=== PATIENT | male | born 1995 ===

== ENCOUNTER 2016-07-30 12:29 | Emergency (ER) | payer OTHER ==
[2016-07-30 12:30] VITALS: BMI 33.9
[2016-07-30 12:52] VITALS: TEMP 98.6
--- NOTE | 2016-07-30 13:20 | ED PDOC ---
Arrival/HPI - General Chief Complaint: Groin Pain Time Seen by Provider: 07/30/16 13:13 Historian: Patient - History of Present Illness Narrative History of Present Illness (Text): 07/30/16 13:17 21 year old male presents to the emergency department with left testicular pain after moving furniture today. Patient feels like he has a hernia. No urinary complaints. Time/Duration: 24 hours Symptom Onset: Gradual Symptom Course: Unchanged Modifying Factors (Text): None Associated Symptoms (Text): None Past Medical History - Provider Review Nursing Documentation Reviewed: Yes - Infectious Disease Hx of Infectious Diseases: None - Tetanus Immunization Tetanus Immunization: Up to Date - Past Medical History Past Medical History: No Previous - Cardiac Hx Cardiac Disorders: No - Pulmonary Hx Asthma: Yes - Neurological Hx Neurological Disorder: No - HEENT Hx HEENT Disorder: No - Renal Hx Renal Disorder: No - Endocrine/Metabolic Hx Endocrine Disorders: No - Hematological/Oncological Hx Blood Disorders: No - Integumentary Hx Dermatological Disorder: No - Musculoskeletal/Rheumatological Hx Musculoskeletal Disorders: No - Gastrointestinal Hx Gastrointestinal Disorders: No - Genitourinary/Gynecological Hx Genitourinary Disorders: No - Psychiatric Hx Psychophysiologic Disorder: No Hx Depression: No Hx Emotional Abuse: No Hx Physical Abuse: No Hx Substance Use: No - Past Surgical History Past Surgical History: No Previous - Surgical History Other/Comment: abdominal surgery at 2 months old - Anesthesia Hx Anesthesia: Yes Hx Anesthesia Reactions: No Hx Malignant Hyperthermia: No - Suicidal Assessment Feels Threatened In Home Enviroment: No Family/Social History - Physician Review Nursing Documentation Reviewed: Yes Family/Social History: Unknown Family HX Smoking Status: Current Some Days Smoker Hx Alcohol Use: Yes Hx Substance Use: No Hx Substance Use Treatment: No Allergies/Home Meds Allergies/Adverse Reactions: Allergies No Known Allergies Allergy (Verified 03/31/16 11:20) Home Medications: Home Meds Medication Instructions Recorded Confirmed No Known Home Med 07/30/16 07/30/16 Review of Systems - Physician Review All systems were reviewed & negative as marked: Yes - Review of Systems Genitourinary Male: Other (Left testicular pain). absent: Dysuria, Frequency, Hematuria Musculoskeletal: absent: Back Pain Physical Exam Vital Signs Reviewed: Yes Vital Signs Temp Pulse Resp BP Pulse Ox 07/30/16 14:09 64 18 155/79 H 98 07/30/16 12:50 98.6 F 68 16 157/80 H 98 Temperature: Afebrile Blood Pressure: Normal Pulse: Regular Respiratory Rate: Normal Appearance: Positive for: Well-Appearing, Non-Toxic, Comfortable Pain Distress: None Mental Status: Positive for: Alert and Oriented X 3 - Systems Exam Head: Present: Atraumatic, Normocephalic Pupils: Present: PERRL Extroacular Muscles: Present: EOMI Conjunctiva: Present: Normal Mouth: Present: Moist Mucous Membranes Neck: Present: Normal Range of Motion Respiratory/Chest: Present: Clear to Auscultation, Good Air Exchange. No: Respiratory Distress, Accessory Muscle Use Cardiovascular: Present: Regular Rate and Rhythm, Normal S1, S2. No: Murmurs Abdomen: Present: Normal Bowel Sounds. No: Tenderness, Distention, Peritoneal Signs Genitourinary Male: Present: Testicle Tenderness (Left). No: Masses, Hernias Upper Extremity: Present: Normal Inspection. No: Cyanosis, Edema Lower Extremity: Present: Normal Inspection. No: Edema Neurological: Present: GCS=15, CN II-XII Intact, Speech Normal Skin: Present: Warm, Dry, Normal Color. No: Rashes Psychiatric: Present: Alert, Oriented x 3, Normal Insight, Normal Concentration Medical Decision Making ED Course and Treatment: Impression: 21 year old male presents with left testicular pain after lifting today. Differential Diagnosis include but are not limited to: R/o torsion Plan: -- US testes -- Reassess and disposition Prior Visits: Notes and results from previous visits were reviewed. Patient last seen in ED on 05/02/16 for right finger pain and discharged home with Motrin. Progress Notes: 07/30/16 15:14 pt reassessed. comfortable, listening to music. no palpable hernia. ?already reduced. us shows hydroceles. no abd pain, no ttp. - Lab Interpretations Lab Results: Lab Results 07/30/16 14:00: Urine Color Yellow, Urine Appearance Clear, Urine pH 6.0, Ur Specific [place] 1.010, Urine Protein Negative, Urine Glucose (UA) Negative, Urine Ketones Negative, Urine Blood Negative, Urine Nitrate Negative, Urine Bilirubin Negative, Urine Urobilinogen 0.2, Ur Leukocyte Esterase Negative - RAD Interpretation Radiology Orders: 07/30/16 13:16 TESTES DUPLEX COMPLETE [US] Stat - Scribe Statement The provider has reviewed the documentation as recorded by the Scribe Nikunj Ly Provider Tresibe Attestation: All medical record entries made by the Johanne were at my direction and personally dictated by me. I have reviewed the chart and agree that the record accurately reflects my personal performance of the history, physical exam, medical decision making, and the department course for this patient. I have also personally directed, reviewed, and agree with the discharge instructions and disposition. Disposition/Present on Arrival - Present on Arrival Any Indicators Present on Arrival: No History of DVT/PE: No History of Uncontrolled Diabetes: No Urinary Catheter: No History of Decub. Ulcer: No History Surgical Site Infection Following: None - Disposition Have Diagnosis and Disposition been Completed?: Yes Diagnosis: Testicular pain, Hydrocele Disposition: HOME/ ROUTINE Disposition Time: 15:21 Condition: STABLE Discharge Instructions (ExitCare): Hydrocele (ED) Additional Instructions: please follow up with your doctor/specialist. return to er with worsening symptoms or concerns. Referrals: PCP,NO [Primary Care Provider] - Follow up with primary Francisco J Vital MD [Staff Provider] - Follow up with primary Edis Moore MD [Staff Provider] - Follow up with primary
[2016-07-30 14:30] LABS: URINE BILIRUBIN NEGATIVE (NEGATIVE); URINE BLOOD NEGATIVE (NEGATIVE); URINE GLUCOSE (UA) NEGATIVE (NEGATIVE); URINE KETONE NEGATIVE (NEGATIVE); URINE LEUKOCYTE ESTERASE NEGATIVE Leu/uL (NEGATIVE); URINE PROTEIN NEGATIVE mg/dL (<30 mg/dL); URINE UROBILINOGEN 0.2 E.U./dL (<1 E.U./dL)
[2016-07-30 14:36] LABS: URINE APPEARANCE CLEAR (CLEAR); URINE COLOR YELLOW (YELLOW)
--- NOTE | 2016-07-30 15:12 | US ---
HISTORY: Left testicular pain TECHNIQUE: Realtime sonography through the scrotum with color and doppler flow. COMPARISON: None Available. FINDINGS: RIGHT TESTICLE: Measures 4.5 x 2.0 x 3.4 cm. Normal echotexture and flow. RIGHT EPIDIDYMIS: Epididymal head measures 0.7 x 0.9 x 1.1 cm. Grossly unremarkable appearance with normal flow. LEFT TESTICLE: Measures 4.5 x 2.1 x 3.0 cm. Normal echotexture and flow. LEFT EPIDIDYMIS: Epididymal head measures 3.9 x 1.0 x 1.0 cm. Grossly unremarkable appearance with normal flow. HYDROCELE: There are bilateral small hydroceles. VARICOCELE: None. OTHER FINDINGS: None. IMPRESSION: No evidence for testicular mass, torsion or epididymo-orchitis. Small bilateral hydroceles.
[2016-07-30 15:47] VITALS: BP 121/71; PULSE 65; RESP 16; O2SAT 99
== END 2016-07-30 15:47 | disposition home or self-care (01) ==
LOC: ED 12:29
DX: N50.812 Left testicular pain (principal); N43.3 Hydrocele, unspecified; F17.210 Nicotine dependence, cigarettes, uncomplicated

== ENCOUNTER 2016-08-26 08:18 | Emergency (ER) | payer SELFPAY ==
[2016-08-26 08:18] VITALS: BMI 33.9
[2016-08-26 08:32] VITALS: BP 125/60; PULSE 60; RESP 18; TEMP 97.9; O2SAT 98
--- NOTE | 2016-08-26 09:06 | ED PDOC ---
Arrival/HPI - General Chief Complaint: Abnormal Skin Integrity Time Seen by Provider: 08/26/16 09:02 Historian: Patient - History of Present Illness Narrative History of Present Illness (Text): 08/26/16 09:02 A 21 year old male presents to the emergency department complaining of an itchy rash throughout his body for the past 2 days. Patient reports his symptom began after falling onto grass during a sporting event. Patient has been taking Benadryl, with mild relief. Patient denies any fever, nausea, vomiting, diarrhea , abdominal pain, urinary symptoms, chest pain, shortness of breath, sore throat or any other complaints. Time/Duration: Other (2 days) Symptom Course: Unchanged Quality: Other Context: Other Past Medical History - Provider Review Nursing Documentation Reviewed: Yes - Infectious Disease Hx of Infectious Diseases: None - Tetanus Immunization Tetanus Immunization: Up to Date - Past Medical History Past Medical History: No Previous - Cardiac Hx Cardiac Disorders: No - Pulmonary Hx Asthma: Yes - Neurological Hx Neurological Disorder: No - HEENT Hx HEENT Disorder: No - Renal Hx Renal Disorder: No - Endocrine/Metabolic Hx Endocrine Disorders: No - Hematological/Oncological Hx Blood Disorders: No - Integumentary Hx Dermatological Disorder: No - Musculoskeletal/Rheumatological Hx Musculoskeletal Disorders: No - Gastrointestinal Hx Gastrointestinal Disorders: No - Genitourinary/Gynecological Hx Genitourinary Disorders: No - Psychiatric Hx Psychophysiologic Disorder: No Hx Depression: No Hx Emotional Abuse: No Hx Physical Abuse: No Hx Substance Use: No - Past Surgical History Past Surgical History: No Previous - Surgical History Other/Comment: abdominal surgery at 2 months old - Anesthesia Hx Anesthesia: Yes Hx Anesthesia Reactions: No Hx Malignant Hyperthermia: No - Suicidal Assessment Feels Threatened In Home Enviroment: No Family/Social History - Physician Review Nursing Documentation Reviewed: Yes Family/Social History: No Known Family HX Smoking Status: Current Some Days Smoker Hx Alcohol Use: Yes Frequency of alcohol use: Socially Hx Substance Use: No Hx Substance Use Treatment: No Allergies/Home Meds Allergies/Adverse Reactions: Allergies No Known Allergies Allergy (Verified 08/26/16 08:32) Physical Exam - Physical Exam Narrative Physical Exam (Text): - Review of Systems Constitutional: Normal. absent: Fatigue, Weight Change, Fevers Eyes: Normal ENT: Normal Respiratory: Normal absent: SOB, Cough, Sputum Cardiovascular: Normal absent: Chest pain, Palpitations, Syncope Gastrointestinal: Normal absent: Abdominal pain, Diarrhea, Nausea, Vomiting Genitourinary: Normal. absent: Dysuria, Frequency, Hematuria Musculoskeletal: Normal. absent: Arthralgias, Back Pain, Neck Pain Skin: (+) Itchy rash throughout body Neurological: Normal absent: Focal Weakness Endocrine: Normal Hemo/Lymphatic: Normal Psychiatric: Normal - Physical exam Patient appears age appropriate, speaking full sentences without difficulty - Systems Exam Head: Present: Atraumatic, Normocephalic Pupils: Present: PERRL Extraocular Muscles: Present: EOMI Conjunctiva: Present: Normal Mouth: Present: Moist Mucous Membranes Neck: Present: Normal Range of Motion. No: MIDLINE TENDERNESS, Paraspinal Tenderness Respiratory/Chest: Present: Clear to Auscultation, Good Air Exchange. No: Respiratory Distress, Accessory Muscle Use, Tachypneic Cardiovascular: Present: Regular Rate and Rhythm, Normal S1, S2, Peripheral Pulses Present. No: Murmurs Abdomen: Present: Normal Bowel Sounds, No: Tenderness, Peritoneal Signs, Rebound, Guarding, Distention Back: Present: Normal Inspection. No: Midline Tenderness, Paraspinal Tenderness Upper Extremity: Present: Normal Inspection. No: Cyanosis, Edema Lower Extremity: Present: Normal Inspection. No: Edema Neurological: Present: GCS=15, Speech Normal, cranial nerves II through XII fully intact with no cerebellar abnormality, neuro-sensory fully intact. No focal neurological deficits. Skin: Present: Warm, Dry, Diffuse hives Lymphatic: Present: OX3, NI, NC Psychiatric: Present: Alert, Oriented x 3, Normal Insight, Normal Concentration Vital Signs Reviewed: Yes Vital Signs Temp Pulse Resp BP Pulse Ox 08/26/16 08:26 97.9 F 60 18 125/60 98 Temperature: Afebrile Blood Pressure: Normal Pulse: Regular Respiratory Rate: Normal Appearance: Positive for: Well-Appearing, Non-Toxic, Comfortable Pain Distress: None Mental Status: Positive for: Alert and Oriented X 3 Medical Decision Making ED Course and Treatment: 08/26/16 09:02 Impression: A 21 year old male with diffuse hives throughout his body. Patient denies any shortness of breath. Progress Notes: Plan is to discharge patient with prescriptions for Benadryl, Medrol dose pack and Pepcid. I have discussed the plan with the patient, who expresses understanding. Patient in agreement with plan to be discharged home. Patient is stable for discharge. Patient was instructed to follow up with physician or return if symptoms worsen or new concerning symptoms arise. - Scribe Statement The provider has reviewed the documentation as recorded by the Johanne Mason Provider Scribe Attestation: All medical record entries made by the Scribe were at my direction and personally dictated by me. I have reviewed the chart and agree that the record accurately reflects my personal performance of the history, physical exam, medical decision making, and the department course for this patient. I have also personally directed, reviewed, and agree with the discharge instructions and disposition. Disposition/Present on Arrival - Present on Arrival Any Indicators Present on Arrival: No History of DVT/PE: No History of Uncontrolled Diabetes: No Urinary Catheter: No History of Decub. Ulcer: No History Surgical Site Infection Following: None - Disposition Have Diagnosis and Disposition been Completed?: Yes Diagnosis: Rash Disposition: HOME/ ROUTINE Disposition Time: 09:03 Patient Plan: Discharge Condition: GOOD Discharge Instructions (ExitCare): Urticaria (ED), Acute Rash (ED) Additional Instructions: PLEASE RETURN TO THE EMERGENCY DEPARTMENT FOR NEW OR WORSENING SYMPTOMS. RETURN RIGHT AWAY IF YOU CANNOT FOLLOW UP WITH YOUR PRIMARY CARE DOCTOR, CLINIC, OR SPECIALIST IN 1-2 DAYS. Prescriptions: DiphenhydrAMINE [Benadryl] 50 mg PO BID PRN #14 cap PRN Reason: Itching / Pruritus Methylprednisolone [Medrol Dose Pack (21 tabs)] 4 mg PO DAILY #21 mg Famotidine [Pepcid] 20 mg PO BID #14 tab Referrals: Pepper Bustillo MD [Staff Provider] - Follow up with primary Forms: WORK NOTE
== END 2016-08-26 09:20 | disposition home or self-care (01) ==
LOC: ED 08:18
DX: R21 Rash and other nonspecific skin eruption (principal)

== ENCOUNTER 2017-07-03 10:22 | Emergency (ER) | payer OTHER ==
[2017-07-03 10:23] VITALS: BMI 33.9
--- NOTE | 2017-07-03 12:57 | ED PDOC ---
Arrival/HPI - General Chief Complaint: Dental Pain Time Seen by Provider: 07/03/17 12:43 Historian: Patient - History of Present Illness Narrative History of Present Illness (Text): 07/03/17 12:53 Pt is a 21 year old male who presents to the emergency department with left lower wisdom tooth pain x 1 day. States his tooth broke months ago and never had it fixed. Was eating a bagel with cream cheese last night and woke up this morning with moderate pain and irritation. Took several extra strength Tylenol this morning with no change in pain status. Denies chest pain, shortness of breath, fever, chills, nausea vomiting or diarrhea or any other complaints at this time. 07/05/17 12:30 Time/Duration: 4-6 hours Symptom Onset: Sudden Symptom Course: Unchanged Quality: Aching Severity Level: Mild Activities at Onset: Light, Eating Context: Home Past Medical History - Provider Review Nursing Documentation Reviewed: Yes - Travel History Have you recently traveled outside [place] w/in the past 3 mons?: No - Past History Past History: No Previous - Infectious Disease Hx of Infectious Diseases: None - Tetanus Immunization Tetanus Immunization: Up to Date - Past Medical History Past Medical History: No Previous - Cardiac Hx Cardiac Disorders: No - Pulmonary Hx Asthma: Yes - Neurological Hx Neurological Disorder: No - HEENT Hx HEENT Disorder: No - Renal Hx Renal Disorder: No - Endocrine/Metabolic Hx Endocrine Disorders: No - Hematological/Oncological Hx Blood Disorders: No - Integumentary Hx Dermatological Disorder: No - Musculoskeletal/Rheumatological Hx Musculoskeletal Disorders: No - Gastrointestinal Hx Gastrointestinal Disorders: No - Genitourinary/Gynecological Hx Genitourinary Disorders: No - Psychiatric Hx Psychophysiologic Disorder: No Hx Depression: No Hx Emotional Abuse: No Hx Physical Abuse: No Hx Substance Use: No - Past Surgical History Past Surgical History: No Previous - Surgical History Other/Comment: abdominal surgery at 2 months old - Anesthesia Hx Anesthesia: Yes Hx Anesthesia Reactions: No Hx Malignant Hyperthermia: No - Suicidal Assessment Feels Threatened In Home Enviroment: No Family/Social History - Physician Review Nursing Documentation Reviewed: Yes Family/Social History: Unknown Family HX Smoking Status: Current Some Days Smoker Hx Alcohol Use: Yes Frequency of alcohol use: Socially Hx Substance Use: No Hx Substance Use Treatment: No Allergies/Home Meds Allergies/Adverse Reactions: Allergies No Known Allergies Allergy (Verified 07/03/17 12:10) Review of Systems - Physician Review All systems were reviewed & negative as marked: Yes - Review of Systems Constitutional: Normal Eyes: Normal ENT: Normal, Other (pain on left lower jar ) Respiratory: Normal Cardiovascular: Normal Gastrointestinal: Normal Genitourinary Male: Normal Musculoskeletal: Normal Skin: Normal Neurological: Normal Endocrine: Normal Hemo/Lymphatic: Normal Psychiatric: Normal Physical Exam Vital Signs Reviewed: Yes Vital Signs Temp Pulse Resp BP Pulse Ox 07/03/17 14:15 58 L 18 117/70 100 07/03/17 11:00 97.6 F 57 L 18 111/62 100 Temperature: Afebrile Blood Pressure: Normal Pulse: Regular Respiratory Rate: Normal Appearance: Positive for: Well-Appearing, Non-Toxic, Comfortable Pain Distress: None Mental Status: Positive for: Alert and Oriented X 3 - Systems Exam Head: Present: Atraumatic, Normocephalic Pupils: Present: PERRL Extroacular Muscles: Present: EOMI Conjunctiva: Present: Normal Mouth: Present: Other (wisdom tooht lower jaw, old fracture) Neck: Present: Normal Range of Motion Respiratory/Chest: Present: Clear to Auscultation, Good Air Exchange. No: Respiratory Distress, Accessory Muscle Use Cardiovascular: Present: Regular Rate and Rhythm, Normal S1, S2. No: Murmurs Abdomen: Present: Normal Bowel Sounds. No: Tenderness, Distention, Peritoneal Signs Back: Present: Normal Inspection Upper Extremity: Present: Normal Inspection. No: Cyanosis, Edema Lower Extremity: Present: Normal Inspection. No: Edema Neurological: Present: GCS=15, CN II-XII Intact, Speech Normal Skin: Present: Warm, Dry, Normal Color. No: Rashes Psychiatric: Present: Alert, Oriented x 3, Normal Insight, Normal Concentration Medical Decision Making ED Course and Treatment: 07/03/17 12:57 Pt is a 21 year old male who presents to the emergency department with left lower jaw wisdom tooth pain x 1 day. On PE, there is an old fractured wisdom tooth of the mandible. No erythema or edema surrounding the tooth however there is mild tenderness to the buccal and cheek area on palpation Plan Ibuprofen 600mg STAT Azithromycin 500mg once Assess and Dispo home with 4 more days of Azithromycin Follow up with dentist peterson 07/03/17 15:20 Dr. Contreras advised changing ABX to Clindamycin Pt was notified and Rx called into pharmacy Clindamycin 300mg q6 po x 7 days 07/03/17 15:22 07/05/17 12:30 - Medication Orders Current Medication Orders: Discontinued Medications Azithromycin (Zithromax) 500 mg PO STAT STA PRN Reason: Protocol Stop: 07/03/17 12:50 Last Admin: 07/03/17 13:04 Dose: 500 mg Ibuprofen (Motrin Tab) 600 mg PO STAT STA Stop: 07/03/17 12:44 Last Admin: 07/03/17 13:04 Dose: 600 mg MAR Pain/Vitals Document 07/03/17 13:04 EQ (Rec: 07/03/17 13:04 EQ [id number]) Pain Reassessment Is This A Pain ReAssessment? No Sleep Is patient sleeping during reassessment? No Presence of Pain Presence of Pain Yes Pain Scale Used Pain Scale Used Numeric Disposition/Present on Arrival - Present on Arrival Any Indicators Present on Arrival: Yes History of DVT/PE: No History of Uncontrolled Diabetes: No Urinary Catheter: No History of Decub. Ulcer: No History Surgical Site Infection Following: None - Disposition Have Diagnosis and Disposition been Completed?: No Diagnosis: Dental abscess Disposition: HOME/ ROUTINE Disposition Time: 13:53 Patient Plan: Discharge Condition: GOOD Additional Instructions: Dear Obey Please see your dentist in the next day to be assessed for a dental abscess. Take the medication we have prescribed, in full, until it is gone If you develop fever, shortness of breath or other alarming symptoms in the next 24 hrs, return to the emergency department All the best Prescriptions: Azithromycin 250 mg PO DAILY 4 Days #4 tablet Ibuprofen [Motrin Tab] 600 mg PO Q6 PRN 5 Days #20 tab PRN Reason: pain/fever Forms: [employer] (Hungarian)
[2017-07-03 13:06] VITALS: RESP 18; TEMP 97.6; O2SAT 100
[2017-07-03 14:16] VITALS: BP 117/70; PULSE 58
== END 2017-07-03 14:16 | disposition home or self-care (01) ==
LOC: ED 10:22
DX: K04.7 Periapical abscess without sinus (principal)

== ENCOUNTER 2017-07-25 22:23 | Emergency (ER) | payer OTHER ==
[2017-07-25 22:23] VITALS: BMI 33.9
== END 2017-07-26 00:46 | disposition left against medical advice (07) ==
LOC: ED 22:23
DX: Z02.89 Encounter for other administrative examinations (principal); M54.5 Low back pain

== ENCOUNTER 2017-08-27 10:52 | Emergency (ER) | payer OTHER ==
[2017-08-27 10:52] VITALS: BMI 33.9
[2017-08-27 11:03] VITALS: BP 111/76
--- NOTE | 2017-08-27 11:19 | ED PDOC ---
Arrival/HPI - General Historian: Patient <Maury Bentley - Last Filed: 08/27/17 13:50> <JasonMerritt wilks - Last Filed: 08/27/17 15:47> - General Chief Complaint: Lower Extremity Problem/Injury Time Seen by Provider: 08/27/17 11:13 - History of Present Illness Narrative History of Present Illness (Text): 08/27/17 11:18 22 y/o male, pmh including hydrocele, nkda, c/o lt. anterior ankle pain x 1 day after playing basketball yesterday. aching pain, aggravated by walking, no numbness or tingling, no rash, no calf pain, no dizziness, no change in vision, no palpitation, no numbness or tingling, no other medical or psychological complaints. (Maury Benltey) Past Medical History - Provider Review Nursing Documentation Reviewed: Yes - Past History Past History: No Previous - Infectious Disease Hx of Infectious Diseases: None - Tetanus Immunization Tetanus Immunization: Up to Date - Past Medical History Past Medical History: No Previous - Cardiac Hx Cardiac Disorders: No - Pulmonary Hx Asthma: Yes - Neurological Hx Neurological Disorder: No - HEENT Hx HEENT Disorder: No - Renal Hx Renal Disorder: No - Endocrine/Metabolic Hx Endocrine Disorders: No - Hematological/Oncological Hx Blood Disorders: No - Integumentary Hx Dermatological Disorder: No - Musculoskeletal/Rheumatological Hx Musculoskeletal Disorders: No - Gastrointestinal Hx Gastrointestinal Disorders: No - Genitourinary/Gynecological Hx Genitourinary Disorders: No - Psychiatric Hx Psychophysiologic Disorder: No Hx Depression: No Hx Emotional Abuse: No Hx Physical Abuse: No Hx Substance Use: No - Past Surgical History Past Surgical History: No Previous - Surgical History Other/Comment: abdominal surgery at 2 months old - Anesthesia Hx Anesthesia: Yes Hx Anesthesia Reactions: No Hx Malignant Hyperthermia: No - Suicidal Assessment Feels Threatened In Home Enviroment: No <Maury Bentley - Last Filed: 08/27/17 13:50> Family/Social History - Physician Review Nursing Documentation Reviewed: Yes Family/Social History: Unknown Family HX Smoking Status: Current Some Days Smoker Hx Alcohol Use: Yes Frequency of alcohol use: Socially Hx Substance Use: No Hx Substance Use Treatment: No <Maury Bentley - Last Filed: 08/27/17 13:50> Allergies/Home Meds <Maury Bentley - Last Filed: 08/27/17 13:50> <Merritt Gomez - Last Filed: 08/27/17 15:47> Allergies/Adverse Reactions: Allergies No Known Allergies Allergy (Verified 08/27/17 11:03) Review of Systems - Review of Systems Constitutional: absent: Fatigue, Fevers Eyes: absent: Vision Changes ENT: absent: Hearing Changes Respiratory: absent: SOB, Cough Cardiovascular: absent: Chest Pain Gastrointestinal: absent: Abdominal Pain, Nausea, Vomiting Musculoskeletal: Arthralgias. absent: Back Pain, Myalgias Skin: absent: Rash, Pruritis Neurological: absent: Headache Psychiatric: absent: Anxiety, Depression <Maury Bentley Q - Last Filed: 08/27/17 13:50> Physical Exam Vital Signs Reviewed: Yes Temperature: Afebrile Blood Pressure: Normal Pulse: Regular Respiratory Rate: Normal Appearance: Positive for: Well-Appearing, Non-Toxic, Comfortable Pain Distress: Mild Mental Status: Positive for: Alert and Oriented X 3 - Systems Exam Head: Present: Atraumatic, Normocephalic Pupils: Present: PERRL Extroacular Muscles: Present: EOMI Conjunctiva: Present: Normal Mouth: Present: Moist Mucous Membranes Neck: Present: Normal Range of Motion Respiratory/Chest: Present: Clear to Auscultation, Good Air Exchange. No: Respiratory Distress, Accessory Muscle Use Cardiovascular: Present: Regular Rate and Rhythm, Normal S1, S2. No: Murmurs Abdomen: No: Tenderness, Distention, Peritoneal Signs Back: Present: Normal Inspection Upper Extremity: Present: Normal Inspection. No: Cyanosis, Edema Lower Extremity: Present: Normal Inspection, Other (Lt. ankle: +ttp on the anterior medial tendon region, no swelling, no foot tenderness or swelling, negative rashad and duran signs, no erythematous, FROM without limitation, sensation intact, motor 5/5, +DPPT pulses, capillary refill< 2 seconds, ). No: Edema Neurological: Present: GCS=15, CN II-XII Intact, Speech Normal Skin: Present: Warm, Dry, Normal Color. No: Rashes Psychiatric: Present: Alert, Oriented x 3, Normal Insight, Normal Concentration <Muary Bentley - Last Filed: 08/27/17 13:50> Vital Signs Temp Pulse Resp BP Pulse Ox 08/27/17 12:02 98.1 F 79 18 99 08/27/17 10:59 98 F 74 19 111/76 98 Medical Decision Making - Lab Interpretations I have reviewed the lab results: Yes - RAD Interpretation Commercial Loan Administrator: Radiologist <Maury Bentley - Last Filed: 08/27/17 13:50> <Merritt Gomez - Last Filed: 08/27/17 15:47> ED Course and Treatment: 08/27/17 11:26 -Lt. ankle xray -motrin 08/27/17 11:50 -Lt. ankle xray show no fracture or dislocation -nichole wrap with neurovascular intact -Discharge home with motrin, nichole wrap, crutches, ice compression, avoid gym and exercise, follow up with your own pmd and orthopedic within 2 days, return to the ER for any new or worsening signs or symptoms. (Maury Bentley) - RAD Interpretation Radiology Orders: 08/27/17 11:22 ANKLE LEFT 3 VIEWS ROUTINE [RAD] Stat Lt. ankle xray: PROCEDURE: Left Ankle Radiographs. HISTORY: lt. ankle medial pain x 2 days. COMPARISON: None FINDINGS: BONES: Normal. No fracture. JOINTS: Normal. No osteoarthritis. Ankle mortise maintained. Talar dome intact SOFT TISSUES: Normal. OTHER FINDINGS: None. IMPRESSION: Normal left ankle radiographs. (Maury Bentley) - Medication Orders Current Medication Orders: Discontinued Medications Ibuprofen (Motrin Tab) 600 mg PO STAT STA Stop: 08/27/17 11:23 Last Admin: 08/27/17 11:44 Dose: 600 mg MAR Pain/Vitals Document 08/27/17 11:44 [email or web address] (Rec: 08/27/17 11:47 [email or web address] [id number]) Pain Reassessment Is This A Pain ReAssessment? No Sleep Is patient sleeping during reassessment? No Presence of Pain Presence of Pain Yes Pain Scale Used Pain Scale Used Numeric Location Left, Right or Bilateral Left Pain Location Body Site Ankle Description Constant Intensity 5 Scale Used Numeric Pain Behavior Facial Grimacing Aggravating Factors Changing Position Alleviating Factors Medication - PA / COMPOSING ROOM MACHINIST APPRENTICE / Resident Statement / has reviewed & agrees with the documentation as recorded. <Maury Bentley - Last Filed: 08/27/17 13:50> - PA / COMPOSING ROOM MACHINIST APPRENTICE / Resident Statement / has reviewed & agrees with the documentation as recorded. <Merritt Gomez - Last Filed: 08/27/17 15:47> Disposition/Present on Arrival - Present on Arrival Any Indicators Present on Arrival: No History of DVT/PE: No History of Uncontrolled Diabetes: No Urinary Catheter: No History of Decub. Ulcer: No History Surgical Site Infection Following: None - Disposition Have Diagnosis and Disposition been Completed?: Yes Disposition Time: 11:27 Patient Plan: Discharge <aMury Bentley - Last Filed: 08/27/17 13:50> <Merritt Gomez - Last Filed: 08/27/17 15:47> - Disposition Diagnosis: Ankle pain, Tendinitis of ankle Disposition: HOME/ ROUTINE Condition: GOOD Discharge Instructions (ExitCare): Tendonitis (DC) Additional Instructions: -Discharge home with motrin, nichole wrap, crutches, ice compression, avoid gym and exercise, follow up with your own pmd and orthopedic within 2 days, return to the ER for any new or worsening signs or symptoms. Prescriptions: Ibuprofen [Motrin] 600 mg PO QID PRN #30 tab PRN Reason: Other Referrals: Greg Cash MD [Staff Provider] - Follow up with primary Forms: WORK NOTE
[2017-08-27 12:02] VITALS: PULSE 79; RESP 18; TEMP 98.1; O2SAT 99
--- NOTE | 2017-08-27 12:29 | RAD ---
PROCEDURE: Left Ankle Radiographs. HISTORY: lt. ankle medial pain x 2 days. COMPARISON: None FINDINGS: BONES: Normal. No fracture. JOINTS: Normal. No osteoarthritis. Ankle mortise maintained. Talar dome intact SOFT TISSUES: Normal. OTHER FINDINGS: None. IMPRESSION: Normal left ankle radiographs.
== END 2017-08-27 12:03 | disposition home or self-care (01) ==
LOC: ED 10:52
DX: M25.572 Pain in left ankle and joints of left foot (principal); M77.9 Enthesopathy, unspecified; F17.200 Nicotine dependence, unspecified, uncomplicated

== ENCOUNTER 2017-08-28 14:50 | Emergency (ER) | payer OTHER ==
[2017-08-28 14:51] VITALS: BMI 33.9
[2017-08-28] MEDS ORDERED: Oxycodone/Acetaminophen 5/325 mg Tab PO STA (15:14)
--- NOTE | 2017-08-28 15:21 | ED PDOC ---
Arrival/HPI - General Chief Complaint: Dental Pain Time Seen by Provider: 08/28/17 14:52 Historian: Patient - History of Present Illness Narrative History of Present Illness (Text): 08/28/17 15:15 22yo male with no PMhx who present with left sided lower molar toothache. Notes that pain started days ago and became worse today. He states pain is severe and radiating to his head. He did not take any pain medication. Denies fever, chills , any other complaint. Past Medical History - Provider Review Nursing Documentation Reviewed: Yes - Past History Past History: No Previous - Infectious Disease Hx of Infectious Diseases: None - Tetanus Immunization Tetanus Immunization: Up to Date - Past Medical History Past Medical History: No Previous - Cardiac Hx Cardiac Disorders: No - Pulmonary Hx Respiratory Disorders: Yes Hx Asthma: Yes - Neurological Hx Neurological Disorder: No - HEENT Hx HEENT Disorder: No - Renal Hx Renal Disorder: No - Endocrine/Metabolic Hx Endocrine Disorders: No - Hematological/Oncological Hx Blood Disorders: No - Integumentary Hx Dermatological Disorder: No - Musculoskeletal/Rheumatological Hx Musculoskeletal Disorders: Yes Other/Comment: SPRAIN - Gastrointestinal Hx Gastrointestinal Disorders: No - Genitourinary/Gynecological Hx Genitourinary Disorders: No - Psychiatric Hx Psychophysiologic Disorder: No Hx Depression: No Hx Emotional Abuse: No Hx Physical Abuse: No Hx Substance Use: Yes (CANNABIS) - Past Surgical History Past Surgical History: No Previous - Surgical History Other/Comment: abdominal surgery at 2 months old - Anesthesia Hx Anesthesia: Yes Hx Anesthesia Reactions: No Hx Malignant Hyperthermia: No - Suicidal Assessment Feels Threatened In Home Enviroment: No Family/Social History - Physician Review Nursing Documentation Reviewed: Yes Family/Social History: Unknown Family HX Smoking Status: Current Some Days Smoker Hx Alcohol Use: Yes Frequency of alcohol use: Socially Hx Substance Use: Yes (CANNABIS) Hx Substance Use Treatment: No Allergies/Home Meds Allergies/Adverse Reactions: Allergies No Known Allergies Allergy (Verified 08/28/17 15:03) Review of Systems - Physician Review All systems were reviewed & negative as marked: Yes - Review of Systems Constitutional: Normal Eyes: Normal ENT: Other (Toothache) Respiratory: Normal Cardiovascular: Normal Gastrointestinal: Normal Genitourinary Male: Normal Musculoskeletal: Normal Skin: Normal Neurological: Normal Endocrine: Normal Hemo/Lymphatic: Normal Psychiatric: Normal Physical Exam Vital Signs Reviewed: Yes Vital Signs Temp Pulse Resp BP Pulse Ox 08/28/17 15:03 98.3 F 63 16 113/59 L 96 Temperature: Afebrile Blood Pressure: Normal Pulse: Regular Respiratory Rate: Normal Appearance: Positive for: Well-Appearing, Non-Toxic, Comfortable Pain Distress: None Mental Status: Positive for: Alert and Oriented X 3 - Systems Exam Head: Present: Atraumatic, Normocephalic Pupils: Present: PERRL Extroacular Muscles: Present: EOMI Conjunctiva: Present: Normal Mouth: Present: Moist Mucous Membranes. No: Normal Teeth (LEft sided 1st molar noted avulsed with mild surrounding gum swelling) Neck: Present: Normal Range of Motion Respiratory/Chest: Present: Clear to Auscultation, Good Air Exchange. No: Respiratory Distress, Accessory Muscle Use Cardiovascular: Present: Regular Rate and Rhythm, Normal S1, S2. No: Murmurs Abdomen: No: Tenderness, Distention, Peritoneal Signs Back: Present: Normal Inspection Upper Extremity: Present: Normal Inspection. No: Cyanosis, Edema Lower Extremity: Present: Normal Inspection. No: Edema Neurological: Present: GCS=15, CN II-XII Intact, Speech Normal Skin: Present: Warm, Dry, Normal Color. No: Rashes Psychiatric: Present: Alert, Oriented x 3, Normal Insight, Normal Concentration Disposition/Present on Arrival - Present on Arrival Any Indicators Present on Arrival: No History of DVT/PE: No History of Uncontrolled Diabetes: No Urinary Catheter: No History of Decub. Ulcer: No History Surgical Site Infection Following: None - Disposition Have Diagnosis and Disposition been Completed?: Yes Diagnosis: Dental abscess Disposition: HOME/ ROUTINE Disposition Time: 15:20 Patient Plan: Discharge Condition: STABLE Discharge Instructions (ExitCare): Tooth Abscess (DC) Additional Instructions: Follow up with a Dentist Return to ED for any new symptoms Prescriptions: Amoxicillin 875 mg PO TID #21 tab Ibuprofen [Motrin Tab] 600 mg PO Q6 #20 tab traMADol [Ultram] 50 mg PO TID #8 tab Referrals: [facility] at [facility] [place] [Outside] - Follow up with primary
[2017-08-28 16:12] VITALS: BP 107/72; PULSE 75; RESP 20; TEMP 98.5; O2SAT 99
== END 2017-08-28 16:16 | disposition home or self-care (01) ==
LOC: ED 14:50
DX: K04.7 Periapical abscess without sinus (principal); F17.200 Nicotine dependence, unspecified, uncomplicated
CPT/HCPCS: 96372; 99283; J1885

== ENCOUNTER 2017-11-28 22:14 | Emergency (ER) | payer SELFPAY ==
[2017-11-28 22:14] VITALS: BMI 33.9
[2017-11-28 23:25] VITALS: TEMP 98.2
--- NOTE | 2017-11-29 00:03 | ED PDOC ---
Arrival/HPI - General Chief Complaint: ENT Problem Time Seen by Provider: 11/28/17 22:58 Historian: Patient - History of Present Illness Narrative History of Present Illness (Text): 11/28/17 23:30 This 22 yo male presents to this ED c/o lip burning sensation after placing a cigar in his lips x TRANSITION RN Patient stated he has use this type of cigars before without problems. Patient otherwise feels fine, and he denies sob, wheezing, tongue swelling, stridor, skin rash, cp, dizziness, dental pain, or dysphagia. Time/Duration: Prior to Arrival Context: Home Past Medical History - Provider Review Nursing Documentation Reviewed: Yes - Past History Past History: No Previous - Infectious Disease Hx of Infectious Diseases: None - Tetanus Immunization Tetanus Immunization: Up to Date - Past Medical History Past Medical History: No Previous - Cardiac Hx Cardiac Disorders: No - Pulmonary Hx Respiratory Disorders: Yes Hx Asthma: Yes - Neurological Hx Neurological Disorder: No - HEENT Hx HEENT Disorder: No - Renal Hx Renal Disorder: No - Endocrine/Metabolic Hx Endocrine Disorders: No - Hematological/Oncological Hx Blood Disorders: No - Integumentary Hx Dermatological Disorder: No - Musculoskeletal/Rheumatological Hx Musculoskeletal Disorders: Yes Other/Comment: SPRAIN - Gastrointestinal Hx Gastrointestinal Disorders: No - Genitourinary/Gynecological Hx Genitourinary Disorders: No - Psychiatric Hx Psychophysiologic Disorder: No Hx Depression: No Hx Emotional Abuse: No Hx Physical Abuse: No Hx Substance Use: Yes (CANNABIS) - Past Surgical History Past Surgical History: No Previous - Surgical History Other/Comment: abdominal surgery at 2 months old - Anesthesia Hx Anesthesia: Yes Hx Anesthesia Reactions: No Hx Malignant Hyperthermia: No - Suicidal Assessment Feels Threatened In Home Enviroment: No Family/Social History - Physician Review Nursing Documentation Reviewed: Yes Family/Social History: Other (noncontributory) Smoking Status: Current Some Days Smoker Hx Alcohol Use: Yes Hx Substance Use: Yes (CANNABIS) Hx Substance Use Treatment: No Allergies/Home Meds Allergies/Adverse Reactions: Allergies No Known Allergies Allergy (Verified 08/28/17 15:03) Review of Systems - Review of Systems Constitutional: Normal. absent: Fatigue, Weight Change, Fevers Eyes: Normal ENT: Other (lips feel like burning) Respiratory: Normal Cardiovascular: Normal Gastrointestinal: Normal Genitourinary Male: Normal Musculoskeletal: Normal Skin: Normal Neurological: Normal Endocrine: Normal Hemo/Lymphatic: Normal Psychiatric: Normal Physical Exam Vital Signs Temp Pulse Resp BP Pulse Ox 11/29/17 01:15 68 17 110/70 98 11/28/17 22:45 98.2 F 60 18 105/64 96 Temperature: Afebrile Blood Pressure: Normal Pulse: Regular Respiratory Rate: Normal Appearance: Positive for: Well-Appearing, Non-Toxic, Comfortable Pain Distress: None Mental Status: Positive for: Alert and Oriented X 3 - Systems Exam Head: Present: Atraumatic, Normocephalic Pupils: Present: PERRL Extroacular Muscles: Present: EOMI Conjunctiva: Present: Normal Mouth: Present: Moist Mucous Membranes, Normal Tounge, Normal Teeth, Other ((+) 3 mm canker sore inner upper lip. (+) 3 small pin point redness. No abscess. No lip edema. Oropharynx is patent). No: Dry, Drooling, Trismus Pharnyx: Present: Normal. No: ERYTHEMA, EXUDATE, TONSILS ENLARGED Neck: Present: Normal Range of Motion Respiratory/Chest: Present: Clear to Auscultation, Good Air Exchange. No: Respiratory Distress, Accessory Muscle Use Cardiovascular: Present: Regular Rate and Rhythm, Normal S1, S2. No: Murmurs Abdomen: No: Tenderness, Distention, Peritoneal Signs Back: Present: Normal Inspection Upper Extremity: Present: Normal Inspection. No: Cyanosis, Edema Lower Extremity: Present: Normal Inspection. No: Edema Neurological: Present: GCS=15, CN II-XII Intact, Speech Normal Skin: Present: Warm, Dry, Normal Color. No: Rashes Psychiatric: Present: Alert, Oriented x 3, Normal Insight, Normal Concentration Medical Decision Making ED Course and Treatment: 11/29/17 00:54 Re-evaluation. Patient feels better. Discussed results and plan with patient who expresses understanding. All questions answered and there is agreement with the plan to discharge home with instructions. Patient stable for discharge. Return if symptoms persist or worsen Patient was recommended to follow up ENT in 1-2 days. And to take medication as instructed. Re-evaluation Time: 00:54 Reassessment Condition: Re-examined, Improved - Medication Orders Current Medication Orders: Discontinued Medications Lidocaine HCl (Lidocaine 2% Viscous) 15 ml MM STAT STA Stop: 11/29/17 00:00 Last Admin: 11/29/17 00:17 Dose: 15 ml Disposition/Present on Arrival - Present on Arrival Any Indicators Present on Arrival: No History of DVT/PE: No History of Uncontrolled Diabetes: No Urinary Catheter: No History of Decub. Ulcer: No History Surgical Site Infection Following: None - Disposition Have Diagnosis and Disposition been Completed?: Yes Diagnosis: Canker sores oral Disposition: HOME/ ROUTINE Disposition Time: 00:56 Patient Plan: Discharge Condition: GOOD Discharge Instructions (ExitCare): Mouth Sores (DC) Additional Instructions: Call private doctor for follow up visit in 1-2 days. take medication as instructed. Call ENT doctor office for revaluation. Return to emergency if symptoms worsen. Prescriptions: Ibuprofen [Motrin] 600 mg PO Q8 PRN #20 tab PRN Reason: Pain, Severe (8-10) Lidocaine 2% Viscous 15 ml MM QID PRN #1 bottle PRN Reason: Pain, Severe (8-10) Sucralfate [Carafate] 1 gm PO DAILY #1 bottle Referrals: [facility] [Outside] - Follow up with primary Lisa Michel MD [Staff Provider] - Follow up with primary Justo Douglass DO [Staff Provider] - Follow up with primary Forms: [facility] ([place]), WORK NOTE
[2017-11-29 01:39] VITALS: BP 110/70; PULSE 68; RESP 17; O2SAT 98
== END 2017-11-29 01:15 | disposition home or self-care (01) ==
LOC: ED 22:14
DX: K12.0 Recurrent oral aphthae (principal); F17.200 Nicotine dependence, unspecified, uncomplicated

== ENCOUNTER 2018-03-02 02:09 | Emergency (ER) | payer SELFPAY ==
[2018-03-02 02:16] VITALS: BMI 34.3
[2018-03-02 02:21] VITALS: PULSE 63; RESP 18; TEMP 98.3
[2018-03-02] MEDS ORDERED: TDAP Vaccine 0.5 mL Syr IM ONE (03:11)
[2018-03-02] MEDS ORDERED: Lidocaine 1% (10 ml) Inj INJ STA (03:12)
--- NOTE | 2018-03-02 03:18 | ED PDOC ---
Arrival/HPI - General Chief Complaint: Abnormal Skin Integrity Time Seen by Provider: 03/02/18 03:11 Historian: Patient - History of Present Illness Narrative History of Present Illness (Text): 03/02/18 03:00 22 year old male, with no significant past medical history, presents to the emergency department complaining of laceration to the right fifth finger he sustained when washing the dishes tonight. Patient states he was reaching into the sink when a knife cut the 5th lateral right finger. There was minimal bleeding upon arrival. Tetanus status is unknown. Patient denies any fever, nausea, vomiting, diarrhea, headache, dizziness, or any other complaints/injuries. Symptom Onset: Sudden Symptom Course: Unchanged Activities at Onset: Light Context: Home Past Medical History - Provider Review Nursing Documentation Reviewed: Yes - Past History Past History: No Previous - Infectious Disease Hx of Infectious Diseases: None - Tetanus Immunization Tetanus Immunization: Up to Date - Past Medical History Past Medical History: No Previous - Cardiac Hx Cardiac Disorders: No - Pulmonary Hx Respiratory Disorders: Yes Hx Asthma: Yes - Neurological Hx Neurological Disorder: No - HEENT Hx HEENT Disorder: No - Renal Hx Renal Disorder: No - Endocrine/Metabolic Hx Endocrine Disorders: No - Hematological/Oncological Hx Blood Disorders: No - Integumentary Hx Dermatological Disorder: No - Musculoskeletal/Rheumatological Hx Musculoskeletal Disorders: Yes Other/Comment: SPRAIN - Gastrointestinal Hx Gastrointestinal Disorders: No - Genitourinary/Gynecological Hx Genitourinary Disorders: No - Psychiatric Hx Psychophysiologic Disorder: No Hx Depression: No Hx Emotional Abuse: No Hx Physical Abuse: No Hx Substance Use: Yes (CANNABIS) - Past Surgical History Past Surgical History: No Previous - Surgical History Other/Comment: abdominal surgery at 2 months old - Anesthesia Hx Anesthesia: Yes Hx Anesthesia Reactions: No Hx Malignant Hyperthermia: No - Suicidal Assessment Feels Threatened In Home Enviroment: No Family/Social History - Physician Review Nursing Documentation Reviewed: Yes Family/Social History: No Known Family HX Smoking Status: Current Some Days Smoker Hx Alcohol Use: Yes Hx Substance Use: Yes (CANNABIS) Hx Substance Use Treatment: No Allergies/Home Meds Allergies/Adverse Reactions: Allergies No Known Allergies Allergy (Verified 08/28/17 15:03) Review of Systems - Physician Review All systems were reviewed & negative as marked: Yes - Review of Systems Constitutional: absent: Fevers Gastrointestinal: absent: Diarrhea, Nausea, Vomiting Skin: Laceration (to right 5th finger) Neurological: absent: Headache, Dizziness Physical Exam - Physical Exam Narrative Physical Exam (Text): Gen: VS reviewed, alert, well developed, well nourished, nontoxic, mild distress. ENT: normal pharynx. Eye: EOMI, PERRL. Neck: no JVD, supple, no adenopathy. CV: regular rate, regular rhythm, no rubs, no murmur, no gallops, S1, S2, pulses equal and strong. Pulm: no distress, clear to auscultation, no wheeze, no rhonchi, breath sounds equal, no rales. Abd: soft, nontender, no guarding, no rebound, no rigidity, normal bowel sounds. Ext: no edema. Skin: 1cm horizontal linear laceration to the 5th lateral right finger. No tendon involvement. good color, no rash, no cyanosis. Psych: responds appropriately to questions, normal affect. Neuro: oriented x 3, CN2-12 intact grossly, motor intact, sensation intact. Vital Signs Reviewed: Yes Vital Signs Temp Pulse Resp BP Pulse Ox 03/02/18 02:17 98.3 F 63 18 157/79 H 98 Temperature: Afebrile Blood Pressure: Hypertensive Pulse: Regular Respiratory Rate: Normal Medical Decision Making ED Course and Treatment: 03/02/18 03:00 Impression: 22 year old male presents complaining of laceration to the 5th lateral right finger s/p washing the dishes. Plan: -- Lidocaine Hydrochloride, Boostrix Vaccine -- Laceration repair -- Reassess and disposition Progress Notes: PROCEDURE: LACERATION REPAIR Performed by the emergency provider Location: 5th lateral right finger Length: 1 cm horizontal linear Description: {"clean wound edges","no foreign bodies"} Distal CMS: Normal. No deficits. Neurovascularly intact. Anesthesia: Digital block Lidocaine 1% with felt epinephrine. (obtained verbal consent) Preparation: The wound was cleaned with NS and Betadyne. The area was prepped and draped in the usual sterile fashion. Exploration: The wound was explored and no foreign bodies were found. Procedure: The wound was closed with continuous running 4.0 nylon. There was good approximation. In total, 1 were used. Post-Procedure: Good closure and hemostasis. The patient tolerated the procedure well and there were no complications. CSM remains intact. Post procedure dressing applied. - Medication Orders Current Medication Orders: Lidocaine HCl (Lidocaine 1% (20ml)) 20 ml IJ STAT STA Stop: 03/02/18 03:13 Tetanus/Reduced Diphtheria/Acell Pertussis (Boostrix Vaccine Inj) 0.5 ml IM .ONCE ONE Stop: 03/02/18 03:12 - Scribe Statement The provider has reviewed the documentation as recorded by the Tresibsamara Young Provider Scribe Attestation: All medical record entries made by the Scribe were at my direction and personally dictated by me. I have reviewed the chart and agree that the record accurately reflects my personal performance of the history, physical exam, medical decision making, and the department course for this patient. I have also personally directed, reviewed, and agree with the discharge instructions and disposition. Disposition/Present on Arrival - Present on Arrival Any Indicators Present on Arrival: No History of DVT/PE: No History of Uncontrolled Diabetes: No Urinary Catheter: No History of Decub. Ulcer: No History Surgical Site Infection Following: None - Disposition Have Diagnosis and Disposition been Completed?: Yes Diagnosis: Laceration of finger Disposition: HOME/ ROUTINE Disposition Time: 06:02 (actual discharge time not reflected here) Patient Plan: Discharge Condition: STABLE Discharge Instructions (ExitCare): Laceration Repair With Stitches (DC) Additional Instructions: You may return to full work duties when wound completely heals. Have the stitches removed in 7-10 days. you may return to the ER to have the stitches removed. YA RAMIREZ, thank you for letting us take care of you today. Your provider was Dr.Lamont Amaro and you were treated for laceration (cut finger). The emergency medical care you received today was directed at your acute symptoms. If you were prescribed any medication, please fill it and take as directed. It may take several days for your symptoms to resolve. Return to the Emergency Department if your symptoms worsen, do not improve, or if you have any other problems. Please contact your doctor or call one of the physicians/clinics you have been referred to that are listed on the Patient Visit Information form that is included in your discharge packet. Bring any paperwork you were given at discharge with you along with any medications you are taking to your follow up visit. Our treatment cannot replace ongoing medical care by a primary care provider outside of the emergency department. Thank you for allowing the [facility] team to be part of your care today. If you had an X-Ray or CT scan: A Radiologist will review the ED reading if any change in treatment is needed we will contact you. If you had a blood, urine, or wound culture: It will take several days for the results, if any change in treatment is needed we will contact you. If you had an STI test: It will take 48 hours for the results. Please call after 1 week if you have not heard back. Prescriptions: Cephalexin [Keflex] 500 mg PO QID 5 Days #20 capsule Forms: [employer] (Vietnamese), WORK NOTE
[2018-03-02 03:28] VITALS: BP 142/75
[2018-03-02 03:43] VITALS: O2SAT 99
== END 2018-03-02 04:01 | disposition home or self-care (01) ==
LOC: ED 02:09
DX: S61.216A Laceration without foreign body of right little finger without damage to nail, initial encounter (principal); W26.0XXA Contact with knife, initial encounter; Z23 Encounter for immunization

== ENCOUNTER 2018-06-30 17:05 | Emergency (ER) | payer SELFPAY ==
[2018-06-30 19:06] VITALS: BMI 35.2
--- NOTE | 2018-06-30 19:31 | ED PDOC ---
Arrival/HPI - General Chief Complaint: Cough, Cold, Congestion Time Seen by Provider: 06/30/18 19:02 Historian: Patient - History of Present Illness Narrative History of Present Illness (Text): 06/30/18 19:27 22 year old male, no significant pmh, nkda, +smoker, complaining of fever/runny nose/cough/bodyache/fatigue x 2 days with no recent traveling. Pt. stated that he has runny nose with cough, associated with bodyache and fatigue, no recent traveling, no chest pain or shortness of breath, no night sweat, no rash, no abdominal or pelvic pain, no other medical or psychological complaints. Past Medical History - Provider Review Nursing Documentation Reviewed: Yes - Past History Past History: No Previous - Infectious Disease Hx of Infectious Diseases: None - Tetanus Immunization Tetanus Immunization: Up to Date - Past Medical History Past Medical History: No Previous - Cardiac Hx Cardiac Disorders: No - Pulmonary Hx Respiratory Disorders: Yes Hx Asthma: Yes - Neurological Hx Neurological Disorder: No - HEENT Hx HEENT Disorder: No - Renal Hx Renal Disorder: No - Endocrine/Metabolic Hx Endocrine Disorders: No - Hematological/Oncological Hx Blood Disorders: No - Integumentary Hx Dermatological Disorder: No - Musculoskeletal/Rheumatological Hx Musculoskeletal Disorders: Yes Other/Comment: SPRAIN - Gastrointestinal Hx Gastrointestinal Disorders: No - Genitourinary/Gynecological Hx Genitourinary Disorders: No - Psychiatric Hx Psychophysiologic Disorder: No Hx Depression: No Hx Emotional Abuse: No Hx Physical Abuse: No Hx Substance Use: Yes (CANNABIS) - Past Surgical History Past Surgical History: No Previous - Surgical History Other/Comment: abdominal surgery at 2 months old - Anesthesia Hx Anesthesia: Yes Hx Anesthesia Reactions: No Hx Malignant Hyperthermia: No - Suicidal Assessment Feels Threatened In Home Enviroment: No Family/Social History - Physician Review Nursing Documentation Reviewed: Yes Family/Social History: Unknown Family HX Smoking Status: Current Some Days Smoker Hx Alcohol Use: Yes Frequency of alcohol use: Socially Hx Substance Use: Yes (CANNABIS) Hx Substance Use Treatment: No Allergies/Home Meds Allergies/Adverse Reactions: Allergies No Known Allergies Allergy (Verified 06/30/18 19:22) Review of Systems - Review of Systems Constitutional: Fatigue, Fevers Eyes: absent: Vision Changes ENT: Rhinorrhea. absent: Hearing Changes Respiratory: Cough. absent: SOB, Sputum, Wheezing Cardiovascular: absent: Chest Pain Gastrointestinal: absent: Abdominal Pain, Constipation, Diarrhea, Nausea, Vomiting Musculoskeletal: Myalgias. absent: Arthralgias, Back Pain Skin: absent: Rash, Pruritis Neurological: absent: Headache, Dizziness Psychiatric: absent: Anxiety, Depression, Suicidal Ideation Physical Exam Vital Signs Reviewed: Yes Vital Signs Temp Pulse Resp BP Pulse Ox 06/30/18 18:45 102.7 F H 102 H 20 148/72 98 Temperature: Febrile Blood Pressure: Normal Pulse: Regular Respiratory Rate: Tachypneic Appearance: Positive for: Well-Appearing, Non-Toxic, Comfortable Pain Distress: Mild Mental Status: Positive for: Alert and Oriented X 3 - Systems Exam Head: Present: Atraumatic, Normocephalic Pupils: Present: PERRL Extroacular Muscles: Present: EOMI Conjunctiva: Present: Normal Ears: Present: NORMAL TM, Normal Canal. No: Erythema Mouth: Present: Moist Mucous Membranes Pharnyx: No: ERYTHEMA, EXUDATE, TONSILS ENLARGED Nose (External): Present: Atraumatic. No: Abrasion, Contusion, Laceration Nose (Internal): Present: Normal Inspection, No Active Bleeding, Rhinorrhea. No: Septal Hematoma, Epistaxis Neck: Present: Normal Range of Motion, Trachea Midline. No: Meningeal Signs, MIDLINE TENDERNESS, Paraspinal Tenderness, Lymphadenopathy Respiratory/Chest: Present: Clear to Auscultation, Good Air Exchange. No: Respiratory Distress, Accessory Muscle Use, Wheezes, Decreased Breath Sounds, Rales, Retracting, Rhonchi, Tachypneic, Tender to Palpation Cardiovascular: Present: Regular Rate and Rhythm, Normal S1, S2. No: Murmurs Abdomen: No: Tenderness, Distention, Peritoneal Signs, Rebound, Guarding Back: Present: Normal Inspection. No: CVA Tenderness Upper Extremity: Present: Normal Inspection. No: Cyanosis, Edema Lower Extremity: Present: Normal Inspection. No: Edema Neurological: Present: GCS=15, CN II-XII Intact, Speech Normal, Motor Func Grossly Intact, Gait Normal, Memory Normal Skin: Present: Warm, Dry, Normal Color. No: Rashes Psychiatric: Present: Alert, Oriented x 3, Normal Insight, Normal Concentration Medical Decision Making ED Course and Treatment: 06/30/18 19:29 -Clinically he has URI and influenza like symptoms, tamiflu/zithromax/tylenol/motrin -observe and reassess 06/30/18 19:54 -Pt. feels much better -Discharge home with tamiflu, zithromax, tylenol, bromfed dm, bed rest, follow up with your own pmd within 2 days, return to the ER for any new or worsening signs or symptoms. - PA / [employer] ADMINISTRATOR / Resident Statement / has reviewed & agrees with the documentation as recorded. Disposition/Present on Arrival - Present on Arrival Any Indicators Present on Arrival: No History of DVT/PE: No History of Uncontrolled Diabetes: No Urinary Catheter: No History of Decub. Ulcer: No History Surgical Site Infection Following: None - Disposition Have Diagnosis and Disposition been Completed?: Yes Diagnosis: Flu-like symptoms, URI (upper respiratory infection) Disposition: HOME/ ROUTINE Disposition Time: 19:55 Patient Plan: Discharge Condition: IMPROVED Additional Instructions: -Discharge home with tamiflu, zithromax, tylenol, bromfed dm, bed rest, follow up with your own pmd within 2 days, return to the ER for any new or worsening signs or symptoms. Prescriptions: Acetaminophen [Tylenol] 2 cap PO QID PRN #30 capsule PRN Reason: Other Azithromycin 250 mg PO DAILY #4 tab Brompheniramine/Pseudoephed/Dm [Bromfed Dm Cough 118 ml] 10 ml PO QID PRN #250 ml PRN Reason: Other Oseltamivir Phosphate [Tamiflu] 75 mg PO BID #10 capsule [place] [facility] [place] - Follow up with primary Forms: [employer] (Vietnamese), WORK NOTE
[2018-06-30 19:56] VITALS: BP 138/70; PULSE 94; RESP 18; TEMP 99.5; O2SAT 100
== END 2018-06-30 19:55 | disposition home or self-care (01) ==
LOC: ED 17:05
DX: J11.1 Influenza due to unidentified influenza virus with other respiratory manifestations (principal); J06.9 Acute upper respiratory infection, unspecified